=== PATIENT | male | born 1990 | race Caucasian/White ===

== ENCOUNTER 2016-12-08 17:18 | Emergency (ER) | payer BC ==
[~2016-12-08] VITALS: Ht 170.2 cm; Wt 72.7 kg
[2016-12-08] MEDS: ACETAMINOPHEN 500 MG TABLET PO ONE ×2 (20:26→20:30)
[2016-12-08 20:30] VITALS: BP 148/70
== END 2016-12-08 20:35 | disposition home or self-care (01) ==
LOC: EMS 17:20
DX: M79.672 Pain in left foot (principal)
CPT/HCPCS: 99284

== ENCOUNTER 2016-12-12 08:54 | Emergency (ER) | payer BC ==
[~2016-12-12] VITALS: Ht 170.2 cm; Wt 72.7 kg
[2016-12-12 11:06] VITALS: BP 134/83
== END 2016-12-12 11:07 | disposition home or self-care (01) ==
LOC: EMS 08:54
DX: M79.672 Pain in left foot (principal)
CPT/HCPCS: 99281

== ENCOUNTER 2018-08-24 09:58 | Emergency (ER) | payer SELFPAY ==
[~2018-08-24] VITALS: Ht 170.2 cm; Wt 72.7 kg
[2018-08-24 10:05] VITALS: BP 134/75
[2018-08-24] MEDS ORDERED: IBUPROFEN 600 MG TABLET PO ONE (10:30)
== END 2018-08-24 11:31 | disposition home or self-care (01) ==
LOC: EMS 09:58
DX: S93.401A Sprain of unspecified ligament of right ankle, initial encounter (principal); X50.9XXA Other and unspecified overexertion or strenuous movements or postures, initial encounter; Y93.89 Activity, other specified; Y92.89 Other specified places as the place of occurrence of the external cause; Y99.8 Other external cause status
CPT/HCPCS: 29515

== ENCOUNTER 2018-10-31 15:57 | Emergency (ER) | payer SELFPAY ==
[~2018-10-31] VITALS: Ht 175.3 cm; Wt 81.8 kg
[2018-10-31 16:06] VITALS: BP 159/106
== END 2018-10-31 17:36 | disposition left against medical advice (07) ==
LOC: EMS 15:57
DX: S61.411A Laceration without foreign body of right hand, initial encounter (principal); W25.XXXA Contact with sharp glass, initial encounter; Y93.89 Activity, other specified; Y92.89 Other specified places as the place of occurrence of the external cause; Y99.8 Other external cause status; Z53.21 Procedure and treatment not carried out due to patient leaving prior to being seen by health care provider

== ENCOUNTER 2020-02-21 14:30 | Emergency (ER) | payer MEDICAID ==
[~2020-02-21] VITALS: Ht 170.2 cm; Wt 75.0 kg
[2020-02-21] MEDS ORDERED: ACETAMINOPHEN/CODEINE 300-30 MG TABLET PO ONE (15:30)
[2020-02-21] MEDS ORDERED: IBUPROFEN 600 MG TABLET PO ONE (15:30)
[2020-02-21 17:00] VITALS: BP 145/73
== END 2020-02-21 17:58 | disposition home or self-care (01) ==
LOC: EMS 14:34
DX: S63.501A Unspecified sprain of right wrist, initial encounter (principal); S63.502A Unspecified sprain of left wrist, initial encounter; S63.601A Unspecified sprain of right thumb, initial encounter; W19.XXXA Unspecified fall, initial encounter; Y93.89 Activity, other specified; Y92.89 Other specified places as the place of occurrence of the external cause; Y99.8 Other external cause status
CPT/HCPCS: 29240; 29280